=== PATIENT | male | born 1935 | race Caucasian/White ===

== ENCOUNTER 2023-06-25 14:20 | Inpatient (IN) | payer MEDICARE, OTHER ==
[2023-06-25] MEDS: hydrALAZINE 25 MG Tab PO SCH (18:24)
[2023-06-25] MEDS: Rosuvastatin 20 MG Tab PO SCH (20:44)
[2023-06-25] MEDS: Metoprolol Tartrate 25 MG Tab PO SCH (20:44)
[2023-06-25] MEDS: Apixaban 2.5 MG Tab PO SCH (20:44)
[2023-06-26] MEDS ORDERED: OMEPRAZOLE 10 MG PO SCH (07:00)
[2023-06-26] MEDS: Omeprazole 20 MG Cap.CR PO SCH (07:54)
[2023-06-26] MEDS: Polyethylene Glycol 3350 Powder 17 GM Packet PO SCH (07:54)
[2023-06-26] MEDS: Losartan 25 MG Tab PO SCH (07:54)
[2023-06-26] MEDS: Ascorbic Acid 500 MG Tab PO SCH (07:54)
[2023-06-26] MEDS: Cholecalciferol (Vitamin D3) 2,000 Unit Cap PO SCH (07:54)
[2023-06-26] MEDS: amLODIPine 10 MG Tab PO SCH (07:54)
[2023-06-26] MEDS: Multivitamin Tab PO SCH (07:55)
[2023-06-26] MEDS: Aspirin 81 MG Tab.Chew PO SCH (07:55)
[2023-06-26] MEDS: Tuberculin, PPD 5 Units/0.1 ML 1 ML MDV IDERM ONE (07:55)
[2023-06-26] MEDS ORDERED: Non-Formulary Medication 1 Each (Ubidecarenone [Co Q-10] 200 MG Capsule) PO SCH (08:00)
[2023-06-26] MEDS: Acetaminophen 325 MG Tab PO PRN (20:56)
[2023-06-27] MEDS ORDERED: Omeprazole 20 MG Cap.CR PO SCH (07:00)
[2023-06-28] MEDS: Bisacodyl 10 MG Supp RECTAL PRN (08:19)
[2023-06-28] MEDS ORDERED: hydrALAZINE 25 MG Tab PO SCH (19:30)
[2023-06-28] MEDS: hydrALAZINE 25 MG Tab PO SCH (22:26)
[2023-06-28] MEDS: Zinc Oxide 20% Oint 56.7 GM Tube TOP PRN (22:33)
[2023-07-01] MEDS: hydrALAZINE 25 MG Tab ONE (20:25)
[2023-07-06] MEDS: Omeprazole 20 MG Cap.CR PO SCH (08:05)
[2023-07-07 08:00] LABS: HEMATOCRIT 50.2 % (40.0-54.0); MEAN CORPUSCULAR HEMOGLOBIN 28.6 pg (27.0-32.0); MEAN CORPUSCULAR HGB CONC 31.9 g/dL (31.0-35.0); MEAN PLATELET VOLUME 12.7 fL (6.0-10.0); RED BLOOD CELL COUNT 5.6 M/uL (4.50-6.50); RED CELL DISTRIBUTION WIDTH 14.8 % (11.0-16.0); WHITE BLOOD CELL COUNT,WBC 6.1 K/uL (4.0-11.0)
[2023-07-07 08:16] LABS: ANION GAP 10.5 mmol/L (5.0-15.0); BLOOD UREA NITROGEN,BUN 15 mg/dL (8-26); BUN/CREATININE RATIO 12.1 (6-25); CALCIUM 9.4 mg/dL (8.5-10.1); CHLORIDE,CL 111 mmol/L (98-107); CREATININE 1.24 mg/dL (0.70-1.30); ESTIMATED GFR 57 mL/min (>60); GLUCOSE RANDOM 99 mg/dL (74-100); POTASSIUM,K 3.5 mmol/L (3.5-5.1); SODIUM,NA 149 mmol/L (136-145)
[2023-07-11 13:23] LABS: HEMATOCRIT 46.3 % (40.0-54.0); HEMOGLOBIN 14.9 g/dL (13.0-18.0); MEAN CORPUSCULAR HEMOGLOBIN 28.7 pg (27.0-32.0); MEAN CORPUSCULAR HGB CONC 32.2 g/dL (31.0-35.0); MEAN PLATELET VOLUME 12.2 fL (6.0-10.0); RED BLOOD CELL COUNT 5.2 M/uL (4.50-6.50); RED CELL DISTRIBUTION WIDTH 14.5 % (11.0-16.0); WHITE BLOOD CELL COUNT,WBC 7.3 K/uL (4.0-11.0)
[2023-07-11 13:39] LABS: ANION GAP 9.7 mmol/L (5.0-15.0); BLOOD UREA NITROGEN,BUN 15 mg/dL (8-26); BUN/CREATININE RATIO 11.5 (6-25); CALCIUM 9.2 mg/dL (8.5-10.1); CARBON DIOXIDE,CO2 29.7 mmol/L (21.0-32.0); CHLORIDE,CL 106 mmol/L (98-107); ESTIMATED GFR 54 mL/min (>60); GLUCOSE RANDOM 154 mg/dL (74-100); POTASSIUM,K 3.4 mmol/L (3.5-5.1); SODIUM,NA 142 mmol/L (136-145)
[2023-07-11] MEDS: Amoxicillin 500 MG Cap PO SCH (16:51)
[2023-07-12] MEDS: Aspirin 81 MG Tab.Chew ONE (10:43)
[2023-07-12] MEDS: Aspirin 81 MG Tab.EC ONE (10:43)
[2023-07-13] MEDS: Amoxicillin 500 MG Cap PO SCH (14:15)
[2023-07-22] MEDS: Sennosides 8.6 MG Tab PO SCH (08:26)
[2023-07-24] MEDS ORDERED: Menthol/Zinc Oxide Ointment 113 GM Tube TOP PRN (10:44)
[2023-07-25] MEDS: Amoxicillin 500 MG Cap PO SCH (14:01)
[2023-07-28] MEDS: Amoxicillin 500 MG Cap ONE (20:35)
[2023-08-05 13:16] LABS: ANION GAP 12.3 mmol/L (5.0-15.0); BLOOD UREA NITROGEN,BUN 10 mg/dL (8-26); BUN/CREATININE RATIO 8.8 (6-25); CALCIUM 9.4 mg/dL (8.5-10.1); CARBON DIOXIDE,CO2 27.7 mmol/L (21.0-32.0); CHLORIDE,CL 102 mmol/L (98-107); CREATININE 1.13 mg/dL (0.70-1.30); ESTIMATED GFR 64 mL/min (>60); GLUCOSE RANDOM 130 mg/dL (74-100); SODIUM,NA 138 mmol/L (136-145)
[2023-08-08] MEDS ORDERED: Nystatin Topical Powder 15 GM Bottle TOP PRN (09:11)
[2023-09-05] MEDS: Metoprolol Tartrate 50 MG Tab ONE (21:10)
== END 2023-09-10 09:20 | DRG 947 ==
LOC: UNDOADMIN 16:15 → LB.MS 16:15
PROVIDERS: ADMIT Surgery; ATTEND Surgery
DX: R53.81 Other malaise (principal); I63.511 Cerebral infarction due to unspecified occlusion or stenosis of right middle cerebral artery; G81.94 Hemiplegia, unspecified affecting left nondominant side; R47.01 Aphasia; I10 Essential (primary) hypertension; E78.5 Hyperlipidemia, unspecified; I48.91 Unspecified atrial fibrillation; I25.10 Atherosclerotic heart disease of native coronary artery without angina pectoris; K59.00 Constipation, unspecified; R13.10 Dysphagia, unspecified; R29.810 Facial weakness; Z95.1 Presence of aortocoronary bypass graft; Z88.8 Allergy status to other drugs, medicaments and biological substances; Z98.890 Other specified postprocedural states; Z79.01 Long term (current) use of anticoagulants; Z79.82 Long term (current) use of aspirin; Z79.899 Other long term (current) drug therapy
CPT/HCPCS: 36415; 80048; 85027; 86580; 92507-GN; 92523-GN; 92526-GN; 92610-GN; 97110-GO; 97110-GP; 97112-GP; 97116-GP; 97162-GP; 97166-GO; 97168-GO; 97530-GO; 97530-GP; 97535-GO; 97542-GO; 99306; 99307; 99308; 99315; A9270-GY

== ENCOUNTER 2024-06-19 21:06 | Inpatient (IN) | payer MEDICARE, OTHER ==
[2024-06-19] MEDS: Sodium Chloride 0.9% 1,000 ML IV SCH (22:00)
[2024-06-19 22:08] LABS: BASOPHILS ABSOLUTE AUTO 0.02 K/uL (0.02-0.10); BASOPHILS PERCENT AUTO 0.1 % (0.0-0.5); EOSINOPHILS ABSOLUTE AUTO 0.13 K/uL (0.04-0.40); EOSINOPHILS PERCENT AUTO 0.8 % (1.0-5.0); HEMATOCRIT 44.7 % (40.0-54.0); HEMOGLOBIN 14.7 g/dL (13.0-18.0); LYMPHOCYTES ABSOLUTE AUTO 1.59 K/uL (1.50-4.00); LYMPHOCYTES PERCENT AUTO 9.6 % (20.0-40.0); MEAN CORPUSCULAR HGB CONC 32.9 g/dL (31.0-35.0); MEAN CORPUSCULAR VOLUME 88 fL (76-96); MEAN PLATELET VOLUME 11.8 fL (6.0-10.0); MONOCYTES ABSOLUTE AUTO 0.68 K/uL (0.20-0.80); MONOCYTES PERCENT AUTO 4.1 % (3.0-10.0); NEUTROPHILS ABSOLUTE AUTO 14.18 K/uL (2.00-7.50); NEUTROPHILS PERCENT AUTO 85.4 % (45.0-70.0); PLATELET COUNT,PLT 161 K/uL (150-400); RED BLOOD CELL COUNT 5.07 M/uL (4.50-6.50); RED CELL DISTRIBUTION WIDTH 14.9 % (11.0-16.0); WHITE BLOOD CELL COUNT,WBC 16.6 K/uL (4.0-11.0)
[2024-06-19] MEDS ORDERED: Sodium Chloride 0.9% 10 ML Syringe FLUSH PRN (22:10)
[2024-06-19 22:15] LABS: APPEARANCE,URINE CLEAR (CLEAR); BILIRUBIN,URINE NEGATIVE (NEGATIVE); COLOR,URINE YELLOW; GLUCOSE,URINE NEGATIVE (NEGATIVE); KETONES,URINE NEGATIVE (NEGATIVE); LEUKOCYTE ESTERASE,URINE NEGATIVE (NEGATIVE); NITRITE,URINE NEGATIVE (NEGATIVE); OCCULT BLOOD,URINE TRACE-INTACT (NEGATIVE); PH,URINE 5.5 (5.0-8.0); PROTEIN,URINE NEGATIVE (NEGATIVE)
[2024-06-19 22:16] LABS: SQUAMOUS EPITHELIAL CELLS,UR FEW /HPF; WBC,URINE 0-5 /HPF
[2024-06-19] MEDS: Levofloxacin/Dextrose 5%-Water 750 MG in Levofloxacin/Dextrose 5%-Water 150 ML IV SCH (22:37)
[2024-06-19 22:43] LABS: A/G RATIO 0.9 (0.8-2.0); ALBUMIN 2.9 g/dL (3.4-5.0); ANION GAP 10.9 mmol/L (5.0-15.0); BILIRUBIN TOTAL 0.5 mg/dL (0.0-1.0); BUN/CREATININE RATIO 21.7 (6-25); CARBON DIOXIDE,CO2 25.5 mmol/L (21.0-32.0); CREATININE 1.15 mg/dL (0.70-1.30); EST CRCL DRUG DOSING (CG) 38.61 mL/min; POTASSIUM,K 4.4 mmol/L (3.5-5.1)
[2024-06-19 22:49] LABS: LACTIC ACID 1.7 mmol/L (0.4-2.0)
[2024-06-19] MEDS: Sodium Chloride 0.9% 500 ML IV ONE (22:57)
[2024-06-19] MEDS ORDERED: cefTRIAXone 2 GM Vial IVPUSH SCH (23:00)
[2024-06-19 23:02] LABS: INFLUENZA A NAA NEGATIVE (NEGATIVE); INFLUENZA B NAA NEGATIVE (NEGATIVE); RESPIRATORY SYNCYTIAL VIR NAA NEGATIVE (NEGATIVE)
[2024-06-19 23:05] LABS: CORONAVIRUS COVID-19 NAA NEGATIVE (NEGATIVE)
[2024-06-19] MEDS ORDERED: cefTRIAXone 1 GM Vial IV SCH (23:15)
[2024-06-19] MEDS: cefTRIAXone 1 GM in Sodium Chloride 0.9% 50 ML IV SCH (23:28)
[2024-06-20] MEDS ORDERED: Metoprolol Tartrate 25 MG Tab PO SCH (04:00)
[2024-06-20] MEDS ORDERED: Aspirin 81 MG Tab.Chew PO SCH (08:00)
[2024-06-20] MEDS ORDERED: Aspirin 81 MG Tab.EC PO SCH (08:00)
[2024-06-20] MEDS: Apixaban 2.5 MG Tab PO SCH (08:32)
[2024-06-20] MEDS: Cholecalciferol (Vitamin D3) 2,000 Unit Cap PO SCH (08:32)
[2024-06-20] MEDS: Aspirin 81 MG Tab.Chew PO SCH (08:32)
[2024-06-20] MEDS: Ascorbic Acid 500 MG Tab PO SCH (08:32)
[2024-06-20] MEDS: Sennosides 8.6 MG Tab PO SCH (08:32)
[2024-06-20] MEDS: amLODIPine 10 MG Tab PO SCH (08:35)
[2024-06-20] MEDS: Losartan 25 MG Tab PO SCH (08:35)
[2024-06-20] MEDS: Metoprolol Tartrate 25 MG Tab PO SCH (08:35)
[2024-06-20] MEDS: Pantoprazole 40 MG Tab.CR PO SCH (10:04)
[2024-06-21 03:59] LABS: BASOPHILS ABSOLUTE AUTO 0.01 K/uL (0.02-0.10); BASOPHILS PERCENT AUTO 0.2 % (0.0-0.5); EOSINOPHILS PERCENT AUTO 7.6 % (1.0-5.0); HEMATOCRIT 43.3 % (40.0-54.0); HEMOGLOBIN 14.1 g/dL (13.0-18.0); LYMPHOCYTES ABSOLUTE AUTO 1.94 K/uL (1.50-4.00); LYMPHOCYTES PERCENT AUTO 29.4 % (20.0-40.0); MEAN CORPUSCULAR HEMOGLOBIN 28.8 pg (27.0-32.0); MEAN CORPUSCULAR HGB CONC 32.6 g/dL (31.0-35.0); MEAN CORPUSCULAR VOLUME 88 fL (76-96); MEAN PLATELET VOLUME 12.1 fL (6.0-10.0); MONOCYTES ABSOLUTE AUTO 0.58 K/uL (0.20-0.80); MONOCYTES PERCENT AUTO 8.8 % (3.0-10.0); NEUTROPHILS ABSOLUTE AUTO 3.57 K/uL (2.00-7.50); PLATELET COUNT,PLT 130 K/uL (150-400); RED CELL DISTRIBUTION WIDTH 14.8 % (11.0-16.0); WHITE BLOOD CELL COUNT,WBC 6.6 K/uL (4.0-11.0)
[2024-06-21] MEDS ORDERED: Levofloxacin/Dextrose 5%-Water 750 MG in Levofloxacin/Dextrose 5%-Water 150 ML IV SCH (22:00)
== END 2024-06-21 10:30 | DRG 206 ==
LOC: LB.ED 21:06 → EDUNIT# 23:30 → LB.MS 23:30
PROVIDERS: ADMIT Surgery; ATTEND Surgery
DX: J98.11 Atelectasis (principal); I69.920 Aphasia following unspecified cerebrovascular disease; Z66 Do not resuscitate; I25.10 Atherosclerotic heart disease of native coronary artery without angina pectoris; E78.5 Hyperlipidemia, unspecified; I48.91 Unspecified atrial fibrillation; Z86.73 Personal history of transient ischemic attack (TIA), and cerebral infarction without residual deficits; Z95.5 Presence of coronary angioplasty implant and graft
CPT/HCPCS: 0241U; 36415; 71045; 80053; 81001; 83605; 85025; 87040; 99222; 99231; 99238; A9270-GY; C1758; J0696; J1956; J7030; J7040

== ENCOUNTER 2025-01-31 07:01 | Emergency (ER) | payer MEDICARE, OTHER ==
[2025-01-31 07:39] LABS: BASOPHILS ABSOLUTE AUTO 0.01 K/uL (0.02-0.10); BASOPHILS PERCENT AUTO 0.1 % (0.0-0.5); EOSINOPHILS ABSOLUTE AUTO 0.01 K/uL (0.04-0.40); EOSINOPHILS PERCENT AUTO 0.1 % (1.0-5.0); LYMPHOCYTES ABSOLUTE AUTO 0.72 K/uL (1.50-4.00); LYMPHOCYTES PERCENT AUTO 5.7 % (20.0-40.0); MEAN PLATELET VOLUME 11.9 fL (6.0-10.0); MONOCYTES ABSOLUTE AUTO 0.46 K/uL (0.20-0.80); MONOCYTES PERCENT AUTO 3.6 % (3.0-10.0); NEUTROPHILS ABSOLUTE AUTO 11.43 K/uL (2.00-7.50); NEUTROPHILS PERCENT AUTO 90.5 % (45.0-70.0); PLATELET COUNT,PLT 221 K/uL (150-400); RED BLOOD CELL COUNT 5.76 M/uL (4.50-6.50); RED CELL DISTRIBUTION WIDTH 14.6 % (11.0-16.0); WHITE BLOOD CELL COUNT,WBC 12.6 K/uL (4.0-11.0)
[2025-01-31 07:45] LABS: BLOOD UREA NITROGEN,BUN 28 mg/dL (8-26); CARBON DIOXIDE,CO2 27.5 mmol/L (21.0-32.0); CHLORIDE,CL 102 mmol/L (98-107); CREATININE 1.25 mg/dL (0.70-1.30); ESTIMATED GFR 56 mL/min (>60); GLUCOSE RANDOM 145 mg/dL (74-100); POTASSIUM,K 4.7 mmol/L (3.5-5.1); SODIUM,NA 140 mmol/L (136-145)
[2025-01-31] MEDS ORDERED: Sodium Chloride 0.9% 10 ML Syringe FLUSH PRN (08:04)
[2025-01-31 08:17] LABS: APPEARANCE,URINE SLIGHTLY CLOUDY (CLEAR); GLUCOSE,URINE NEGATIVE (NEGATIVE); OCCULT BLOOD,URINE MODERATE (NEGATIVE)
[2025-01-31 08:23] LABS: EPITHELIAL CELLS,URINE FEW /HPF
[2025-01-31 08:24] LABS: INR 1.1 (1.0-3.5)
[2025-01-31] MEDS: Lactated Ringers 1,000 ML IV SCH (08:28)
[2025-01-31] MEDS: Factor IX Complex Human 500 UNIT VIAL IV ONE (08:31)
[2025-01-31] MEDS: VANCOmycin 1.25 GM/250 ML 1.25 GM in Premix Bag 1 BAG IV ONE (09:41)
[2025-01-31 10:10] VITALS: PULSE 103
[2025-01-31 11:08] VITALS: BP 109/68
== END 2025-01-31 11:00 ==
LOC: LB.ED 07:01
DX: K92.2 Gastrointestinal hemorrhage, unspecified (principal); I25.10 Atherosclerotic heart disease of native coronary artery without angina pectoris; I48.91 Unspecified atrial fibrillation; I10 Essential (primary) hypertension; E78.00 Pure hypercholesterolemia, unspecified; Z86.73 Personal history of transient ischemic attack (TIA), and cerebral infarction without residual deficits; Z79.82 Long term (current) use of aspirin; Z79.899 Other long term (current) drug therapy; Z88.8 Allergy status to other drugs, medicaments and biological substances; Z79.01 Long term (current) use of anticoagulants
CPT/HCPCS: 36415; 71045; 80048; 81001; 83605; 83735; 85025; 85610; 85730; 86850; 86900; 86901; 87040; 93005; 96361; 96365; 96367; 96375; 99285-25; A0425; A9270-GY; J2470; J2543; J3375; J7030; J7120; J7168